=== PATIENT | female | born 1970 | race Caucasian/White ===

== ENCOUNTER 2021-04-28 13:55 | Observation (INO) ==
[2021-04-28] MEDS ORDERED: *HR* HYDROmorphone (PF) 1 MG/ML SYRINGE IVP STA (17:09)
[2021-04-28] MEDS ORDERED: Ondansetron 4 MG/2 ML VIAL IVP PRN (17:10)
[2021-04-28] MEDS ORDERED: *HR* HYDROcodone/Acet 5/325 mg TABLET PO PRN (17:10)
[2021-04-28] MEDS ORDERED: *HR* HYDROmorphone (PF) 1 MG/ML SYRINGE IVP PRN (17:10)
[2021-04-28] MEDS ORDERED: Acetaminophen 325 MG TABLET PO PRN (17:13)
[2021-04-28] MEDS ORDERED: Melatonin 3 MG TABLET PO PRN (17:36)
[2021-04-28] MEDS ORDERED: Naloxone 0.4 MG/ML INJ IVP PRN (17:36)
[2021-04-28] MEDS: *HR* OxyCODONE/APAP 10/325 TABLET PO PRN (19:14)
[2021-04-29 03:29] LABS: Basophils % 0.4 %; Eosinophils # 0.1 K/mcL (0.0-0.6); Eosinophils % 1.3 %; Hematocrit 38.9 % (35.3-44.9); Hemoglobin 12.1 g/dL (11.5-15.4); Immature Granulocytes % 0.1 % (0-4); Lymphocytes # 1.9 K/mcL (0.6-4.6); Lymphocytes % 27.6 %; Mean Corpuscular HGB Conc 31.1 g/dL (31.6-35.5); Mean Corpuscular Hemoglobin 28.3 pg (28.0-33.3); Mean Corpuscular Volume 90.9 fL (83.0-100.0); Mean Platelet Volume 11.9 fL (9.4-12.4); Monocytes # 0.7 K/mcL (0.0-1.3); Monocytes % 10.7 %; Platelet Count 163 K/mcL (140-400); Red Blood Count 4.28 M/mcL (3.82-4.97); Red Cell Distribution Width 13.7 % (11.5-14.5); Segmented Neutrophils % 59.9 %; White Blood Count 6.7 K/mcL (4.3-11.1)
[2021-04-29 03:38] LABS: BUN/Creatinine Ratio 20 (6-26); Blood Urea Nitrogen 16 mg/dL (6-20); Calcium 8.8 mg/dL (8.6-10.3); Carbon Dioxide 27 mEq/L (23-29); Chloride 101 mEq/L (98-107); Glucose 105 mg/dL (70-105); Osmolality,Calculated 282 (280-300); Potassium 3.7 mEq/L (3.5-5.1); Sodium 135 mEq/L (136-145); eGFR For African Americans > 60 (> 60); eGFR For Non-African Americans > 60 (> 60)
[2021-04-29] MEDS: *HR* OxyCODONE/APAP 10/325 TABLET PO PRN (04:06)
[2021-04-29] MEDS ORDERED: Ondansetron 4 MG/2 ML VIAL ONE (07:56)
[2021-04-29] MEDS ORDERED: *HR* Propofol 200 MG/20 ML VIAL IVP ONE (07:56)
[2021-04-29] MEDS ORDERED: Lidocaine -MPF 2% 5 ML VIAL ONE (07:56)
[2021-04-29] MEDS ORDERED: *HR* Midazolam HCl 2 MG/2 ML VIAL ONE (07:56)
[2021-04-29] MEDS ORDERED: *HR* FentaNYL (PF) 100 MCG/2 ML VIAL ONE ×4 (07:56→12:16)
[2021-04-29] MEDS ORDERED: *HR* FentaNYL (PF) 100 MCG/2 ML VIAL IVP PRN (07:59)
[2021-04-29] MEDS ORDERED: *HR* HYDROmorphone PF 0.5 MG/0.5 ML SYRINGE IVP PRN (07:59)
[2021-04-29] MEDS: Ringers Solution, Lactated 1,000 ML IVC SCH (08:00)
[2021-04-29] MEDS ORDERED: CeFAZolin Syr 2,000MG/20 ML 2,000 MG/20 ML SYRINGE IVPB ONE (08:15)
[2021-04-29] MEDS ORDERED: Ketamine HCL *QUVA* 50mg (1mL) SYRINGE ONE (09:08)
[2021-04-29] MEDS ORDERED: ROPIVACAINE/PF/NS 0.25% 1 EACH SYRINGE INTRAART ONE (12:10)
[2021-04-29] MEDS ORDERED: Ropivacaine/PF 0.5% 30 ML VIAL ONE (12:10)
[2021-04-29] MEDS ORDERED: *HR* OxyCODONE Immed Rel 5 MG TABLET PO PRN (14:24)
[2021-04-29] MEDS: CeFAZolin 2,000 MG/120 ML BAG IVPB SCH (16:45)
[2021-04-29] MEDS: Acetaminophen 325 MG TABLET PO SCH (16:57)
[2021-04-29 19:55] LABS: Adenovirus Not Detected (Not Detect); Bordetella Pertussis Not Detected (Not Detect); Chlamydophila pneumoniae Not Detected (Not Detect); Coronavirus 229E Not Detected (Not Detect); Coronavirus HKU1 Not Detected (Not Detect); Coronavirus NL63 Not Detected (Not Detect); Coronavirus OC43 Not Detected (Not Detect); Human Metapneumovirus Not Detected (Not Detect); Human Rhinovirus/Enterovirus Not Detected (Not Detect); Influenza A Subtype 2009 H1 Not Detected (Not Detect); Influenza B Not Detected (Not Detect); Mycoplasma pneumoniae Not Detected (Not Detect); Parainfluenza Virus 1 Not Detected (Not Detect); Parainfluenza Virus 2 Not Detected (Not Detect); Parainfluenza Virus 3 Not Detected (Not Detect); Parainfluenza Virus 4 Not Detected (Not Detect); Respiratory Syncytial Virus Not Detected (Not Detect); SARS-CoV-2 Not Detected (Not Detect)
[2021-04-30] MEDS: CeFAZolin 2,000 MG/120 ML BAG IVPB SCH ×2 (00:04→08:12)
[2021-04-30] MEDS: Acetaminophen 325 MG TABLET PO SCH ×4 (00:04→16:30)
[2021-04-30] MEDS: *HR* Enoxaparin 40 MG/0.4 ML SYRINGE SQ SCH (08:12)
[2021-04-30] MEDS: Ringers Solution, Lactated 1,000 ML IVC SCH (08:13)
[2021-04-30] MEDS: *HR* OxyCODONE Immed Rel 5 MG TABLET PO PRN ×2 (11:33→17:50)
[2021-04-30] MEDS ORDERED: Ketorolac 30 MG/ML VIAL IVP ONE (17:33)
[2021-05-01] MEDS: Acetaminophen 325 MG TABLET PO SCH ×2 (00:26→06:39)
[2021-05-01] MEDS: *HR* Enoxaparin 40 MG/0.4 ML SYRINGE SQ SCH (07:57)
[2021-05-01 11:52] VITALS: BP 97/64; PULSE 85; TEMP 98.8; O2SAT 97
== END 2021-05-01 15:32 | disposition home or self-care (01) ==
LOC: 4WAOSI
PROVIDERS: ADMIT Student in an Organized Health Care Education/Training Program; ATTEND Student in an Organized Health Care Education/Training Program